=== PATIENT | female | born 1930 | race Caucasian/White ===

== ENCOUNTER → 2016-12-16 | Outpatient (CLI) | payer OTHER, BC ==
[~2016-12-16] MED LIST: CIPR250T5 PO; TYL325X PO; ZCR40 PO
--- NOTE | 2016-12-16 14:48 | Procedure Note ---
Procedure Note Procedure Date December 16, 2016. Procedure Description Procedure Name: bilateral ureteral stent exchange Procedure time out: side/site verified, patient ID confirmed, correct procedure Consent obtained: verbal (confirmed with patient and tetryl wringer operator over the phone ) Time of procedure: 13:30 Performed by: attending Indications: therapeutic Contraindications: none Description: Patient was placed supine on fluoro table. Her ostomy bag was removed and the ostomy area was prepped with betadine and draped in sterile fashion. Time out held with team. I placed a bentson wire up right ureteral stent until it reached the renal pelvis on fluoro. I removed the old right ureteral stent. I placed a new 7 fr single J ureteral stent over the wire and secured a coil in the renal pelvis under fluoro. I then placed a bentson wire up left ureteral stent until it reached the left renal pelvis on fluoro. It is more occluded with debris and it is gritty to get the wire to pass out the end of stent on fluoro. I had to partly withdraw old sent to get the coil to straiten to get the wire to pass. I removed the old left ureteral stent. I placed a new 7 fr single J ureteral stent over the wire and secured a coil in the left renal pelvis under fluoro. The new stent drained brisk cloudy urine indicating the old stent was partly occluded. Patient tolerated procedure well. I trimmed end of stent and placed about 3 inches of distal ends into the new ostomy bag and clicked the appliance together. Plan: Home today stent change in 2 months if needed. 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
--- NOTE | 2016-12-16 14:53 | History and Physical ---
History Date of Service: December 16, 2016. Chief Complaint: routine stent change Primary Care Physician: Joseluis Muñoz M.D. Pt seen a urologist before?: Yes If yes, why?: bladder cancer History of Present Illness Patient with metastatic bladder cancer. Had palliative cystectomy with bilateral cutaneous ureterostomies. has ureteral stent changed in [facility] q 2 months. She developed brain mets despite chemo and is now on hospice. She is too weak to drive to [place] anymore. We plan to change her stents today in the fluoro suite as we do not have access to fluoro in my office. Her prior stent changes were all done in the urology office at [facility]. Laboratory Labs were reviewed and are within normal limits unless listed below. Labs are available in the chart and at [facility] Problem List Medical Problems: (1) Acute renal failure Status: Acute (2) Altered mental status Status: Acute (3) Brain edema Status: Acute (4) Brain tumor Status: Acute (5) Dehydration Status: Acute (6) Left flank pain Status: Acute (7) Leukocytosis Status: Acute (8) Supratherapeutic INR Status: Acute (9) UTI (urinary tract infection) Status: Acute (10) UTI (urinary tract infection) Status: Acute Past History Past Medical History: hypercoagulability, pulmonary embolism, other ( metastatic bladder cancer , urine infections) Pt had a problem w anesthesia?: No Additional Comments: cystectomy with bilateral cutaneous ureteroscopies. Family History Cancer not relevant at her age Social History Hx Tobacco Use In Past Year?: No Smoking: quit greater than 1 year Alcohol: never Drug use: none Marital status: Housing status: lives with family Occupation status: retired History of MDRO No Allergies Coded Allergies: No Known Allergies (Unverified , 08/14/16) Medications Home Medications: Home Meds and Scripts Medications Dose Route/Sig Max Daily Dose Days Date Category Ciprofloxacin HCl (Ciprofloxacin) 250 Mg Tab 1 Tab PO BIDM 08/02/15 Rx Tylenol (Acetaminophen) 325 Mg Tab 325 Mg PO Q6H PRN 07/28/15 Reported Simvastatin 40 Mg Tab 40 Mg PO HS 03/07/15 Reported Review of Systems Review of Systems Constitutional: + weight loss, No chills, No fever Endocrine: + excessive thirst, + tired/sluggish Gastrointestinal: + constipation, No abdominal pain, No indigestion, No nausea , No vomiting Cardiovascular: No chest pain, No swelling ankles/feet Respiratory: + chronic cough, + shortness of breath Female : + infections, No blood in urine Physical Exam Physical Exam: General Appearance: WD/WN, no apparent distress, + thin Eyes: bilateral eyes normal inspection ENT: hearing grossly normal Neck: supple Respiratory/Chest: normal breath sounds, no respiratory distress, no accessory muscle use Cardiovascular: regular rate, rhythm Extremities: no calf tenderness, + pedal edema Neurologic/Psychiatric: + depressed affect Skin: normal color, warm/dry, no rash Assessment & Plan Assessment & Plan bilateral cutaneous ureterostomies needs routine stent change will do in [facility] fluoro suite [facility] patient and caretakers agreeable
== END | disposition home or self-care (01) ==
LOC: C.RAD 12:13
PROVIDERS: ATTEND Urology
DX: Z43.5 Encounter for attention to cystostomy (principal)

== ENCOUNTER → 2017-03-03 | Outpatient (CLI) | payer OTHER, BC ==
[~2017-03-03] MED LIST changes: -CIPR250T5 PO; +CIPROFLOXACIN 500 MG TAB ONE; +CIPROFLOXACIN 500 MG TAB PO STA; +CPR250 PO
--- NOTE | 2017-03-03 14:05 | Procedure Note ---
Procedure Note Date of Service Mar 03, 2017. Procedure Note Pre-procedure diagnosis- bilateral ureterostomies Post-op diagnosis- same Procedure: exchange of bilateral ureteral stents FIndings; encrustation of left renal coil of stent Surgeon: Lupe rockwell Assist- none anesthesia- none asa 3 EBL; 0mL IV FLuids: none contaminated case (chronically colonized urine) Drains: right 22-32 6 fr double J stent on right , 7 fr single J stent on left Indications: patient with h/o bladder cancer and cutaneous ureterostomies. she is due for stent change. One tab of cipro given pre-procedure Report of Operation- patient was placed supine on fluoro table and the renal coils of stents visualized. I found right stent tip and placed a bentson wire to the kidney. I removed right stent and found it to be intact. I placed new 22-32 6 fr stent over the wire and positioned renal coil with fluoro. I then placed bentson wire into the left kidney but the tip of stent is clogged and wire wont pass. I next tried a road runner wire which passed easily. I removed stent and found it to be intact. I placed a new single J 7 fr stent over wire into left renal pelvis. I placed skin ends of stents into a new ostomy bag. She tolerated procedure well. Plan: home today change stent in 2 months fluoro 1 minute 8 seconds
== END | disposition home or self-care (01) ==
LOC: C.RAD 12:23
PROVIDERS: ATTEND Urology
DX: C67.9 Malignant neoplasm of bladder, unspecified (principal)

== ENCOUNTER → 2017-05-05 | Outpatient (CLI) | payer OTHER, BC ==
[~2017-05-05] MED LIST changes: -CIPROFLOXACIN 500 MG TAB PO STA
--- NOTE | 2017-05-05 14:35 | Procedure Note ---
Procedure Note Date of Service May 05, 2017. Procedure Note Pre-procedure diagnosis- bilateral ureterostomies Post-op diagnosis- same Procedure: exchange of bilateral ureteral stents Findings; mild encrustation of left stent Surgeon: Lupe Torres Assist- none anesthesia- none asa 3 EBL; 0mL IV FLuids: none contaminated case (chronically colonized urine) Drains: right 7 fr single J stent on right blue, 7 fr single J stent on left pink Indications: patient with h/o bladder cancer s/p cystectomy with cutaneous ureterostomies. she is due for stent change. One tab of cipro given pre-procedure Report of Operation- Time out held with team. Patient's daughter gave consent ( brain mets) and patient was placed supine on fluoro table and the renal coils of stents visualized. I found left stent tip and placed a bentson wire to the kidney. I removed left stent and found it to be intact. I placed new 7 fr single J stent over the wire and positioned renal coil with fluoro. I then placed bentson wire thru right stent into the right kidney. I removed stent and found it to be intact. I placed a new single J 7 fr stent over wire into right renal pelvis. I placed skin ends of stents into a new ostomy bag. She tolerated procedure well. Plan: home today change stent in 2 months fluoro 0.9 minutes
--- NOTE | 2017-05-12 14:39 | CODING QUERY NO DIAGNOSIS ---
: 1932 TREATMENT RENDERED WITHOUT A DIAGNOSIS To promote full compliance with coding requirements relating to patient care, physician participation is requested in all cases of outpatient coder uncertainty. Please assist us with providing a diagnosis/symptom for the test(s) below: A diagnosis/symptom was not documented on your Order. A valid diagnosis/symptom is required to bill all insurances. Please remember that we are unable to code a diagnosis of rule out, probable, possible, questionable, or suspected. Tests that require a diagnosis: DOS: 05/05/2017 Fluoroscopy DIAGNOSIS: Provider Signature: Date: Thank you Patrica Hernadez [employer] Once completed, please kindly fax back to [phone] For questions please call [phone]
--- NOTE | 2017-05-21 11:40 | CODING QUERY NO DIAGNOSIS ---
: 1930 TREATMENT RENDERED WITHOUT A DIAGNOSIS To promote full compliance with coding requirements relating to patient care, physician participation is requested in all cases of dog hair clipper uncertainty. Please assist us with providing a diagnosis/symptom for the test(s) below: A diagnosis/symptom was not documented on your Order. A valid diagnosis/symptom is required to bill all insurances. Please remember that we are unable to code a diagnosis of rule out, probable, possible, questionable, or suspected. Tests that require a diagnosis: DOS: 05/05/2017 FLUOROSCPOY DIAGNOSIS: Provider Signature: Date: Thank you Patrica Hernadez [employer] Information [employer] Once completed, please kindly fax back to [phone] For questions please call [phone]
== END | disposition home or self-care (01) ==
LOC: C.RAD 12:33
PROVIDERS: ATTEND Urology
DX: C79.31 Secondary malignant neoplasm of brain (principal); C67.9 Malignant neoplasm of bladder, unspecified